=== PATIENT | female | born 1955 | race Caucasian/White ===

== ENCOUNTER 2017-04-18 08:05 | Day surgery (SDC) | payer MEDICAID ==
[2017-04-18] MEDS ORDERED: Lactated Ringers 1,000 ML IV SCH (08:15)
[2017-04-18] MEDS ORDERED: Midazolam 1 MG/ML 2 ML SDV IV ONE (09:15)
[2017-04-18] MEDS ORDERED: Propofol 200 MG/20 ML SDV IV ONE (09:15)
[2017-04-18] MEDS ORDERED: Lidocaine 2% 100 MG/5 ML Syringe IVPUSH ONE (09:15)
--- NOTE | 2017-04-18 09:45 | PCM.OPNOTE ---
- General Post-Op/Procedure Note Date of Surgery/Procedure: 04/18/17 Operative Procedure(s): egd with bx Findings: retained food gastritis esophagitis Pre Op Diagnosis: epigastric pain Post-Op Diagnosis: gastritis. esophagitis. retained food Anesthesia Technique: DESHAUN Primary Surgeon: Roberto Gomez Anesthesia Provider: Geri Carrillo Pathology: distal esophagus stomach Complications: None Condition: Good Free Text/Narrative:: see dictation
--- NOTE | 2017-04-18 13:15 | OR ---
DATE OF OPERATION: 04/18/2017 SURGEON: Roberto Gomez MD PROCEDURE PERFORMED: Upper endoscopy with cold forceps biopsy. PREOPERATIVE DIAGNOSIS: Symptomatic gastroesophageal reflux disease. POSTOPERATIVE DIAGNOSES: Gastritis and esophagitis with retained food. INDICATIONS: This is a 61-year-old white female, who has been on a proton pump inhibitor for sometime. She has been having some worsening of her symptoms. She was offered and accepted an EGD. DESCRIPTION OF PROCEDURE: After an excellent IV sedation was administered, the bite-block was inserted, the flexible endoscope was passed without difficulty down the patient's esophagus into the stomach. The stomach was insufflated and the scope was passed through the pylorus to the second portion of the duodenum and slowly withdrawn. The following findings were noted. The duodenum is unremarkable. Pylorus was unremarkable. Stomach demonstrated fair amount of retained food as well as gastritis. Biopsies were taken. Unable to irrigate to get a complete view of the gastric mucosa. In addition, GE junction measured approximately 35 cm and there was refluxation of the retained food up into the esophagus as well as some mild erythema which was noted. Biopsies were taken. The remainder of the esophageal exam was unremarkable. It appears that the patient probably has a gastric motility issue at this point, will require further workup. I will try an empiric trial of Reglan, while waiting for biopsy results and will order a gastric motility study to be done as an outpatient up in [place]. /[id number] /MODL
== END 2017-04-18 11:05 | disposition home or self-care (01) ==
LOC: FB.SDS 08:05
PROVIDERS: ATTEND Surgery
DX: K29.50 Unspecified chronic gastritis without bleeding (principal); K20.9 Esophagitis, unspecified; E78.00 Pure hypercholesterolemia, unspecified; E03.9 Hypothyroidism, unspecified; Z91.011 Allergy to milk products; Z91.09 Other allergy status, other than to drugs and biological substances; Z79.82 Long term (current) use of aspirin; Z79.899 Other long term (current) drug therapy
CPT/HCPCS: 43239; 88305; 88342; J2250; J2704; J7120